=== PATIENT | female | born 1995 | race Caucasian/White ===

== ENCOUNTER 2022-08-31 04:16 | Inpatient (IN) ==
[2022-08-31] MEDS ORDERED: OXYTOCIN 30 UNITS/500 ML BAG IV PRN ×2 (05:29→07:16)
[2022-08-31] MEDS ORDERED: LACTATED RINGER'S 1,000 ML IV PRN (05:29)
[2022-08-31] MEDS ORDERED: LIDOCAINE 1% LOCAL 20 ML VIAL INFIL PRN (05:29)
--- NOTE | 2022-08-31 05:29 | History & Physical Report ---
Date of Service August 31, 2022 Assessment & Plan (1) Normal labor and delivery: History of Present Illness Chief Complaint: SROM, Labor Primary Care Provider: NO PCP 26yo at 40w3d by stated EDC of 08/28. She has been receiving her care at [facility]. When her water broke this morning at 3am, and contractions began, she elected to present to [facility] because she had decided she did not want to deliver at [place] and her friend had told her she should deliver here. She did not bring records with her. She reports that has been uncomplicated, no GDM or HTN, and that her prior baby was delivered vaginally at [facility] without complications and without an epidural. She plans to deliver without anesthesia again. She states she is having a boy. She reports being GBS negative. records have been requested from [facility] and a fax is expected any moment but not yet available for review. The FOB is at the bedside and supportive. Allergies Allergy/AdvReac Type Severity Reaction Status Date / Time morphine Allergy Unknown hives Unverified 01/15/16 11:28 Physical Exam Constitutional: WD/WN, vitals as above Eyes: PERRL, conjunctivae normal, anicteric sclerae ENMT: external ear and nose normal, oropharynx normal Neck: supple Respiratory: normal respiratory effort and able to speak in complete sentences; no respiratory distress Cardiovascular: Rate/Rhythm: regular rate and regular rhythm Gastrointestinal (Abdomen): Gravid / AGA, nontender Musculoskeletal: no cyanosis or clubbing, extremities motor strength 5/5 Skin: no rashes, warm and dry Psychiatric: A+Ox3, euthymic affect Genitourinary: Speculum/Bimanual Exam: no vaginal lesions, no vaginal bleeding and uterus nontender OB Exam Abdomen: + vertex (per RN (Sima/Jo-Ann)) and + regular contractions (Q4) Manual OB Exam: + cervical dilation (4-5), + cervical effacement 90%, + station -1 and + amniotic fluid (clear) OB Exam Monitor Tracing: + external FHT monitor used, + external uterine monitor used and + category I Vaginal exam per RN at admission: 4-5/90/-1, vertex, ROM for clear fluid. Lymphatic: no cervical or axillary lymphadenopathy Results & Data Results & Data ([facility]) Vital Signs (Past 12 Hours) Vital Signs Temp Pulse Resp BP 08/31/22 04:40 16 08/31/22 04:40 97.7 F 68 16 134/80 08/31/22 04:35 68 134/80 PG Care Time/CCT Total # of Minutes Spent Total Time Spent with Patient: Total time spent is greater than 50% in coordination of care (as documented) at patient's floor/unit and/or counseling patient: Coding Level of Care Code None Diagnoses Normal labor and delivery O80
--- NOTE | 2022-08-31 05:53 | Communication Note ---
Date of Service: August 31, 2022 Patient chart received from [facility]. Additional information reviewed on patient's phone / patient portal. She is GBS negative (date of culture 08/02/22). The GTT on 06/07/22 was normal. Her care has been insufficient with missed visits due to significant travel time away from this area, as ORIN works two month stretches in [place] and patient went to visit him, but all major milestones (anatomy scan, basic labs, GTT, GBS, etc) appear to have been hit, and her BP is normal at all visits documented. Last visit with [facility] was 08/29/22 and her membranes were stripped at that time, and patient discussed wanting to decline scheduling a postdates IOL and await labor up to 42 full weeks. Patient is also noted to have history of HSV, for which she does take daily valtrex suppression. She currently denies prodrome or lesions; we discussed the risks of HSV outbreak at the time of delivery to ensure she understands the importance of these questions. No lesions were seen on exam per Jo-Ann.
[2022-08-31 06:38] LABS: Amphetamines+Metham, Urine Neg (Neg); Barbiturates, Urine Neg (Neg); Benzodiazepine, Urine Neg (Neg); Cocaine, Urine Neg (Neg); MDMA (Ecstacy), Urine Neg (Neg); Methadone, Urine Neg (Neg); Opiate, Urine Neg (Neg); Phencyclidine, Urine Neg (Neg)
[2022-08-31 06:47] LABS: Hematocrit (blood only) 39.8 % (34.1-44.9); Mean Corpuscular Hemoglobin 31.3 pg (25.0-34.0); Mean Corpuscular Hgb Conc 35.2 g/dL (32.0-36.0); Mean Corpuscular Volume 88.8 fL (80.0-100.0); Mean Platelet Volume 9.9 fL (9.4-12.3); Platelet Count 239 K/uL (130-400); RDW Coefficient of Variation 13.6 % (11.5-14.5); RDW Standard Deviation 43.8 fL (36.4-46.3); Red Blood Count 4.48 M/uL (3.93-5.22); White Blood Count 11.66 K/ul (4.8-10.8)
--- NOTE | 2022-08-31 07:09 | Delivery Summary ---
Vaginal Delivery Summary Date of Service August 31, 2022 Vaginal Delivery Summary DIAGNOSES: 1. Andrade intrauterine at 40w3d gestation. 2. Spontaneous onset of labor. 3. Group B Streptococcus Neg. PROCEDURE: Spontaneous vaginal delivery and repair of 1st degree laceration. SURGEON: Peggy Chang MD. CHARTING CLERK: None. ESTIMATED BLOOD LOSS: 500 mL. COMPLICATIONS: None. PLACENTA: Spontaneous and intact with a 3-vessel cord. DISPOSITION: Stable to labor and delivery. DESCRIPTION: The patient pushed well and brought the head to in OA position. The infant's head was allowed to deliver with contraction force and no further active pushing, with the perineum protected during this time. There was no nuchal cord. The left shoulder was anterior. The shoulders and body delivered without any difficulty, and the was placed on the maternal abdomen. It was vigorous and moving all extremities, and making respiratory efforts. The cord was doubly clamped by the MD and then cut by the FOB. The placenta delivered spontaneously and was noted to be intact and with a 3VC. The cervix, vagina and perineum were examined and were found to have a first degree laceration which was infiltrated with 1% lidocaine and repaired with a figure of eight suture of 3-0 vicryl at patient request. The fundus was firm and lochia minimal immediately after delivery. Patient had a vigorous gush of bleeding during the sponge count after delivery, which responded to fundal massage. After verbal consent, 800mcg rectal cytotec placed. Lochia small after massage and cytotec. [facility] Vaginal Delivery Charge Vaginal Delivery Codes: 40016 global code for the antepartum, delivery, and post-
[2022-08-31] MEDS ORDERED: miSOPROStoL 200 MCG TAB ONE (07:12)
[2022-08-31] MEDS ORDERED: ACETAMINOPHEN 325 MG TAB PO PRN (07:16)
[2022-08-31] MEDS ORDERED: LACTATED RINGER'S 1,000 ML IV SCH (07:16)
[2022-08-31] MEDS ORDERED: HYDROCORTISONE ACETATE 25 MG SUPP PR PRN (07:16)
[2022-08-31] MEDS ORDERED: DIPHTHERIA/TETANUS/PERTUSSIS 0.5 ML SYR/VIAL IM ONE (07:16)
[2022-08-31] MEDS ORDERED: BENZOCAINE 20% AER SPR 82.5 GM CAN EXT PRN (07:16)
[2022-08-31] MEDS ORDERED: IBUPROFEN 600 MG TAB PO PRN (07:16)
[2022-08-31] MEDS ORDERED: bisacodyL 10 MG SUPP PR PRN (07:16)
[2022-08-31] MEDS ORDERED: miSOPROStoL 200 MCG TAB PR ONE (07:25)
[2022-08-31] MEDS ORDERED: valACYclovir HCL 500 MG TABLET PO SCH (09:00)
[2022-08-31] MEDS: DOCUSATE SODIUM 100 MG CAP PO SCH (20:39)
--- NOTE | 2022-09-01 07:04 | Obstetrical Progress Note ---
Date of Service <Bony Long - Last Filed: 09/01/22 07:40> September 01, 2022 Assessment & Plan <Bony Long - Last Filed: 09/01/22 07:40> (1) Status post vaginal delivery: - Feels well today. Eating well, voiding well, ambulating well. - Pain well controlled with ibuprofen 600mg Q4H PRN - Routine care -- OOB, ambulation, diet progression as tolerated - After discharge will have 6 week follow-up with Dr. Chang. - Wishes to be D/C today. <Manas Carter MD, FACOG - Last Filed: 09/01/22 07:46> (1) Status post vaginal delivery: Subjective <Bony Long - Last Filed: 09/01/22 07:40> Patient is a 26 y/o female who is now PPD # 1 following spontaneous vaginal delivery at 40 weeks. Reports feeling well overall this morning. Mild abdominal cramping & 3/10 pain well managed on analgesics. Voiding well. Tolerating meals overnight and able to ambulate some. Able to pass gas and has had a normal bowel movement. Has some persistent lochia with some improvement this morning. Currently breast feeding. Review of Systems Denies fever, chills, sweats Denies shortness of breath, difficulty breathing, chest pain, palpitations, chest pressure. Denies breast pain. Denies dysuria. Denies headache or changes in vision. Physical Exam <Bony Long - Last Filed: 09/01/22 07:40> General: Alert, oriented. No acute distress. Cardiac: Regular rate and rhythm, no murmurs/rubs/gallops. Respiratory: Clear to auscultation bilaterally a/p, no wheezes/rales/rhonchi. No increased work of breathing. Symmetrical chest rise. No respiratory distress. Abdomen: Soft, nontender, nondistended. Bowel sounds present. Uterus: Uterine fundus firm, palpable 3-4 cm below umbilicus. Lower Extremities: No lower extremity edema or swelling. No deep calf pain. Opal's negative bilaterally. Results & Data ([facility]) <Bony PhilippeLuciano TraceyDO kianna - Last Filed: 09/01/22 07:40> Vital Signs (Past 12 Hours) Vital Signs Temp Pulse Resp BP Pulse Ox O2 Del Method 09/01/22 03:56 36.8 C 82 16 112/64 96 Room Air 09/01/22 00:00 36.8 C 90 18 111/75 Room Air 08/31/22 20:00 36.5 C 90 18 108/75 Room Air <Manas Carter MD, FACOG - Last Filed: 09/01/22 07:46> Co-Signing Physician Notes Resident Physician Supervision Note: I was present with Dr. Long during the history and exam. I discussed the case with the resident and agree with the findings and plan as documented in the note. Any exceptions or clarifications are listed here: [None] Documented By: Manas Carter MD, FACOG Resident Activity Tracking <Bony Long DO - Last Filed: 09/01/22 07:40> Resident Involvement: Resident Care Provided Care Provided: OB Delivery
[2022-09-01 07:43] LABS: Hematocrit (blood only) 31.3 % (34.1-44.9); Mean Corpuscular Hgb Conc 35.1 g/dL (32.0-36.0); Mean Platelet Volume 9.4 fL (9.4-12.3); Platelet Count 220 K/uL (130-400); RDW Coefficient of Variation 13.9 % (11.5-14.5); RDW Standard Deviation 44.9 fL (36.4-46.3); Red Blood Count 3.44 M/uL (3.93-5.22); White Blood Count 10.97 K/ul (4.8-10.8)
[2022-09-01] MEDS: PRENATAL VITAMIN 1 TAB PO SCH ×2 (08:38→08:39)
[2022-09-01] MEDS: DOCUSATE SODIUM 100 MG CAP PO SCH (08:39)
[2022-09-01] MEDS ORDERED: bisacodyL 5 MG TABEC PO SCH (20:00)
[2022-09-02 07:38] LABS: Marijuana Quant, GCMS Urine 16 ng/mL (<5)
== END 2022-09-01 13:40 | disposition home or self-care (01) | DRG 807 ==
LOC: OPB 04:16 → 4S1 04:25 → 4E2 10:01